=== PATIENT | female | born 1955 | race Caucasian/White ===

== ENCOUNTER 2023-12-28 15:56 | Emergency (ER) | payer MEDICARE, SELFPAY ==
[2023-12-28 15:58] VITALS: BP 138/88
[2023-12-28 16:29] LABS: % Basophils 0.2 % (0-2); % Immature Granulocytes 0.3 % (0-0.5); % Lymphocytes 10.8 % (20.5-51.1); % Monocytes 5.6 % (1.7-9.3); % Neutrophils 83.1 % (42.2-75.2); Absolute Lymphocytes 1.1 10^3/uL (1.2-3.4); Absolute Monocytes 0.6 10^3/uL (0.1-0.6); Absolute Neutrophils 8.3 10^3/uL (1.4-6.5); Hematocrit 36.1 % (37.0-47.0); Hemoglobin 12.4 g/dL (12.0-16.0); Mean Corp Hgb Conc. 34.3 g/dL (33.0-37.0); Mean Corpuscular Hgb 31.2 pg (27.0-31.0); Mean Corpuscular Volume 90.9 fL (81.0-99.0); Mean Platelet Volume 9.7 fL (7.4-10.4); Nucleated Red Blood Cells % 0 %; Platelet Count 218 10^3/uL (130-400); Red Blood Cell Count 3.97 10^6/uL (4.20-5.40); Red Cell Dist. Width 12.4 % (11.5-14.5)
[2023-12-28 16:42] LABS: ALT (SGPT) 19 U/L (0-35); AST (SGOT) 24 U/L (14-36); Albumin 4.3 g/dl (3.5-5.0); Alkaline Phosphatase 80 U/L (38-126); Blood Urea Nitrogen 14 mg/dl (7-17); Calcium 9.3 mg/dl (8.4-10.2); Carbon Dioxide 23 mmol/L (22-30); Chloride 107 mmol/L (98-107); Glucose 118 mg/dl (70-99); Sodium 137 mmol/L (135-145); Total Bilirubin 0.7 mg/dl (0.2-1.3); Total Protein 6.9 g/dl (6.3-8.2); eGFR > 60.00
[2023-12-28 16:50] LABS: Troponin I < 0.012 ng/ml
--- NOTE | 2023-12-28 18:19 | ED.GENMED ---
History of Present Illness
General
Chief Complaint: Dizziness
Source: patient
Exam Limitations: none
Time Seen by Provider: 12/28/23 18:05
Travel History
Have you had any contact with someone who has COVID-19?: No
Do you have any symptoms of coronavirus? Fever > 100 degrees, chills, cough, shortness of breath, sore throat, loss of taste or smell, muscle aches, or headache?: No
History of Present Illness
History of Present Illness:
68-year-old female with history hypertension hyperlipidemia presents complaining of onset of diffuse weakness upon trying to get out of bed this morning. She states both arms and both legs are very weak. She could not walk. There has been no
fever. No chest pain or shortness of breath. No cough. No urinary symptoms. No headache. She denies any vision changes. She does admit to having both the COVID booster and a pneumonia vaccine yesterday. She notes that her left arm where she
had the vaccines is red and inflamed. No other complaints at this time. She went to bed feeling normal last evening
Past History
Past History
ED Past Medical History: None
ED Past Surgical History: Orthopedic
Social History
Tobacco: Smoker
Phy Exam
Physical Exam
Physical Exam:
General: Well-appearing female no acute respiratory distress
HEENT: Normocephalic atraumatic
Heart: Regular rate and rhythm no murmurs
Lungs: Clear to auscultation bilaterally no wheezing diagnosis
neurologic exam: Alert and oriented x 3, no facial asymmetry 2+ patellar reflexes bilaterally, no drift, finger to nose and heel to carrillo intact. No aphasia
MSK: good ROM all extremities
skin: Erythema to left upper arm at prior site of infection. No induration or fluctuance
Course
Orders/Labs/Results
Orders:
Orders
12/28/23 16:01
Electrocardiogram (*1) Urgent
Reason for Study: Fatigue / Weakness
CT Head W/o Iv Contrast Urgent
Comment:
Reason For Exam: dizziness
EKG- Treatment ONCE
12/28/23 16:06
Complete Blood Count/With Diff Urgent
Comprehensive Metabolic Panel Urgent
Troponin I Urgent
Abnormal Lab Results
12/28/23
16:06
RBC 3.97 L 10^6/uL
(4.20-5.40)
Hct 36.1 L %
(37.0-47.0)
MCH 31.2 H pg
(27.0-31.0)
Absolute Neuts (auto) 8.3 H 10^3/uL
(1.4-6.5)
Absolute Lymphs (auto) 1.1 L 10^3/uL
(1.2-3.4)
Neutrophils % 83.1 H %
(42.2-75.2)
Lymphocytes % 10.8 L %
(20.5-51.1)
Glucose 118 H mg/dl
(70-99)
12/28/23 16:06
12/28/23 16:06
Vital Signs
Initial and Last Documented VS:
Initial Vital Signs
Temp Pulse Resp BP Pulse Ox
98.5 F 75 18 138/88 95
12/28/23 15:58 12/28/23 15:58 12/28/23 15:58 12/28/23 15:58 12/28/23 15:58
Last Documented Vital Signs
Temp Pulse Resp BP Pulse Ox
98.5 F 75 17 135/79 95
12/28/23 15:58 12/28/23 18:25 12/28/23 18:25 12/28/23 18:25 12/28/23 18:25
MDM/Problems Addressed
Differential Diagnosis Includes:
Generalized weakness onset this morning. No unilateral deficit on exam. Do not suspect stroke clinically. Patient had 2 vaccines yesterday including COVID-vaccine booster as well as pneumonia vaccine. Could be immune response from vaccines.
Will check electrolytes and blood count. CT of the head ordered through triage which I have seen and reviewed radiology report this is negative for acute finding. EKG shows sinus rhythm with a rate of 70 no ischemic changes
*Critical Care Note
Total Time (30-74mins, 75-104mins- exclusive of procedures): Not Applicable
Update Note
Update Note:
Patient ambulated without difficulty throughout the department here. Symptoms have nearly resolved. Workup here negative. Do suspect adverse reaction to vaccine she received yesterday. Recommended hydration at home. Stable for discharge
ED Attending Note
-
Portions of this chart may have been created with voice recognition software.� Occasional wrong word or��sound alike� substitutions may have occurred due to the inherent limitations of voice recognition software.
Discharge Plan
Departure
Patient Disposition: Home (Routine Discharge)
Date of Disposition: 12/28/23
Time of Disposition: 19:19
Patient with high blood pressure during this ER visit?: No
Discharge Problem:
Weakness
Instructions: Generalized Weakness
Prescriptions:
No Action
lisinopril 10 mg tablet
10 mg PO DAILY Qty: 30 0RF
atorvastatin 10 mg Tablet
10 mg PO DAILY
Referrals:
Yudelka Ortiz CRNP [Family Provider] -
Activity Restrictions/Additional Instructions:
We think your weakness today perhaps was from the 2 vaccines he received yesterday. You may have had an immune response that caused weakness. There is no sign of stroke. Please stay hydrated. Return for worsening symptoms
Interventions
Interventions:
*Risk Screen - Suicide Last Done: 12/28/23 15:58
*General Assessment Last Done: 12/28/23 15:58
*Neglect/Abuse Screening Last Done: 12/28/23 18:25
*ED COVID-19 Vaccine History Last Done: 12/28/23 18:05
ED- Cardiac Assessment Last Done: 12/28/23 18:24
ED- Neurological Assessment Last Done: 12/28/23 18:24
[2023-12-28 18:25] VITALS: BP 135/79; BMI 22.1
--- NOTE | 2023-12-28 18:27 | EDRN ---
Pt walking in dept with walker - gait steady, no dizziness/pain
== END 2023-12-28 19:30 | disposition home or self-care (01) ==
LOC: EMR 15:56
PROVIDERS: Emergency Medicine; EMERGENCY PHYSICIAN Emergency Medicine; FAMILY PHYSICIAN Nurse Practitioner
DX: R53.1 Weakness (principal); R42 Dizziness and giddiness; F17.200 Nicotine dependence, unspecified, uncomplicated
CPT/HCPCS: 99285; 70450; 80053; 84484; 85025; 93005

== ENCOUNTER → 2024-01-02 12:27 | Outpatient (REF) | payer MEDICARE, SELFPAY | LOC: RAD 12:27 | PROVIDERS: ATTENDING PHYSICIAN Nurse Practitioner | DX: Z00.00 Encounter for general adult medical examination without abnormal findings (principal); Z78.0 Asymptomatic menopausal state | CPT/HCPCS: 71271; 77080 ==

== ENCOUNTER → 2025-09-28 07:44 | Outpatient (REF) | payer OTHER, SELFPAY | LOC: HWRAD 07:44 | PROVIDERS: ATTENDING PHYSICIAN Internal Medicine Critical Care Medicine; FAMILY PHYSICIAN Nurse Practitioner | DX: R91.1 Solitary pulmonary nodule (principal) | CPT/HCPCS: 71250 ==